=== PATIENT | male | born 1950 ===

== ENCOUNTER → 2023-01-24 08:32 | Outpatient (CLI) | payer OTHER | END | disposition home or self-care (01) | LOC: LAB 08:32 | PROVIDERS: ATTEND Family Medicine | DX: K57.52 Diverticulitis of both small and large intestine without perforation or abscess without bleeding (principal); N40.0 Benign prostatic hyperplasia without lower urinary tract symptoms; E78.49 Other hyperlipidemia; Z12.11 Encounter for screening for malignant neoplasm of colon ==

== ENCOUNTER 2023-01-29 09:02 | Outpatient (CLI) | payer OTHER | END 2023-01-29 09:03 | disposition home or self-care (01) | LOC: TOM 09:02 | PROVIDERS: ATTEND Family Medicine | DX: K56.5 Intestinal adhesions [bands] with obstruction (postinfection) (principal); K57.52 Diverticulitis of both small and large intestine without perforation or abscess without bleeding ==

== ENCOUNTER 2024-01-07 09:54 | Outpatient (CLI) | payer OTHER | END 2024-01-07 09:55 | disposition home or self-care (01) | LOC: NUCLEAR 09:54 | PROVIDERS: ATTEND Preventive Medicine Preventive Medicine/Occupational Environmental Medicine | DX: G45.1 Carotid artery syndrome (hemispheric) (principal) ==

== ENCOUNTER 2024-06-02 09:34 | Outpatient (CLI) | payer OTHER | END 2024-06-02 09:49 | disposition home or self-care (01) | LOC: SONOGRAMA 09:34 | PROVIDERS: ATTEND Family Medicine | DX: E04.2 Nontoxic multinodular goiter (principal) ==